=== PATIENT | female | born 1930 | race Caucasian/White ===

== ENCOUNTER 2017-08-22 08:57 | Outpatient (CLI) | payer MEDICARE, OTHER ==
--- OUTSIDE RECORDS SUMMARY | 2017-08-22 09:03 | XMS | Clinical Summary ---
:1930 Author Organization [facility] Address [address] [place] [address] Phone Care Team Providers Name Role Phone , Primary Care Provider Unavailable Allergies Not on File Current Medications Not on file Active Problems Not on file Social History Tobacco Use Types Packs/Day Years Used Date Never Assessed Sex Assigned at Date Recorded Not on file Last Filed Vital Signs Not on file Plan of Treatment Not on file Results Not on filefrom Last 3 Months
--- NOTE | 2017-08-22 10:20 | RAD ---
TWO VIEWS CHEST: Comparison: None. History: Dyspnea. FINDINGS: Two views of the chest shows normal sized cardiomediastinal silhouette. Increased interstitial chaka ngs are present. There is no evidence of consolidation, mass, or pleural effusion. Degenerative fernandez ges are seen in the spine. IMPRESSION: No evidence of acute cardiopulmonary disease. POS: [facility]
== END 2017-08-22 08:58 | disposition home or self-care (01) ==
LOC: RAD 08:57
PROVIDERS: ATTEND Internal Medicine Critical Care Medicine
DX: R06.00 Dyspnea, unspecified (principal)
CPT/HCPCS: 71020

== ENCOUNTER 2017-12-25 15:54 | Outpatient (CLI) | payer MEDICARE, OTHER | END 2017-12-25 15:55 | disposition home or self-care (01) | LOC: BICMAMMO 15:54 | PROVIDERS: ATTEND Internal Medicine Geriatric Medicine | DX: Z12.31 Encounter for screening mammogram for malignant neoplasm of breast (principal) | CPT/HCPCS: 77063; 77067 ==

== ENCOUNTER 2018-02-15 22:19 | Emergency (ER) | payer MEDICARE, OTHER ==
[2018-02-16 03:03] LABS: #Basophils 0.1 thou/uL (0.0-0.2); #Eosinphils 0.1 thou/uL (0.0-0.7); #Lymphocytes 1.2 thou/uL (1.20-3.40); #Monocytes 0.7 thou/uL (0.11-0.59); #Neutrophils 3.2 thou/uL (1.40-6.50); %Basophils 1.2 % (0.0-1.0); %Eosinophils 2.6 % (0.0-10.0); %Lymphocytes 22.9 % (21.0-51.0); %Monocytes 12.9 % (0.0-10.0); %Neutrophils 60.5 % (42.0-75.0); Hemoglobin 13.7 g/dL (12.0-16.0); Mean Corpuscular Hemoglobin 33.9 pg (27.0-31.0); Mean Corpuscular Volume 99.5 fl (81.0-99.0); Mean Platelet Volume 7.6 fL (7.4-10.4); Platelet Count 165 thou/uL (130-400); RBC Distribution Width 11.9 % (11.5-14.5); Red Blood Cell (RBC) Count 4.04 mill/uL (4.20-5.40); White Blood Cell (WBC) Count 5.3 thou/uL (4.8-10.8)
[2018-02-16] MEDS ORDERED: Proparacaine 0.5% Opth 15 ML BOT ONE (03:07)
[2018-02-16 03:18] LABS: ALT (SGPT) 19 U/L (8-55); AST (SGOT) 24 U/L (5-34); Albumin 4.1 g/dL (3.4-4.8); Alkaline Phosphatase 53 U/L (40-150); Anion Gap 8 mmol/L (10-20); BUN (Urea Nitrogen) 33 mg/dL (9.8-20.1); Bilirubin, Total 0.4 mg/dL (0.2-1.2); CRP (Inflammatory) Less than 0.50 mg/dL (= or < 0.5); Calc. Creatinine Clearance 0 mL/min (70-130); Calcium 9.6 mg/dL (7.8-10.44); Carbon Dioxide 29 mmol/L (23-31); Chloride 104 mmol/L (98-107); Estimated GFR-MDRD 50; Globulin 2.5 g/dL (2.4-3.5); Glucose 95 mg/dL (83-110); Protein, Total 6.6 g/dL (6.0-8.3); Sodium 137 mmol/L (136-145)
--- NOTE | 2018-02-16 08:12 | CT ---
PRELIMINARY REPORT/[facility]/EMERGENCY AFTER HOURS PROCEDURE: EXAM: CT Head Without Intravenous Contrast CLINICAL HISTORY: 87 years old, female; Pain; Headache; Patient HX: Headache for two hours. TECHNIQUE: Axial computed tomography images of the head/brain without intravenous contrast. COMPARISON: No relevant prior studies available. FINDINGS: Brain: Mild periventricular and deep white matter hypodensities compatible with chronic microvascular ischemic change. No hemorrhage. Ventricles: Mild nonspecific asymmetry. Bones/joints: Unremarkable. No acute fracture. Soft tissues: Normal. Sinuses: Unremarkable. Mastoid air cells: Unremarkable. No mastoid effusion. IMPRESSION: No acute findings. Thank you for allowing us to participate in the care of your patient. Dictated and Authenticated by: Khai Moody MD 02/16/2018 3:34 AM Central Time ([place] & [place]) FINAL REPORT EMERGENCY AFTER HOURS CT BRAIN: Date: 02/16/18 PROVIDED CLINICAL HISTORY: Headache. IMPRESSION: I agree with the preliminary interpretation given by Marvin. No evidence for intracranial hemorrhage or mass effect. Chronic microvascular ischemic changes are noted. Asymmetry of the frontal horns of the lateral ventricles is again noted, stable with respect to 11/11/16. POS: [facility]
== END 2018-02-16 04:17 | disposition home or self-care (01) ==
LOC: ERS 22:19
DX: R51 Headache (principal); E03.9 Hypothyroidism, unspecified; I10 Essential (primary) hypertension; I25.2 Old myocardial infarction; E78.5 Hyperlipidemia, unspecified; Z79.899 Other long term (current) drug therapy
CPT/HCPCS: 36415; 70450; 80053; 85025; 85652; 86140

== ENCOUNTER 2018-08-15 08:58 | Outpatient (CLI) | payer MEDICARE, OTHER ==
--- NOTE | 2018-08-15 11:00 | RAD ---
PA AND LATERAL CHEST: HISTORY: Dyspnea. COMPARISON: 08/22/17 exam. FINDINGS: The heart size is within normal limits. There are atherosclerotic changes of the aorta. Lungs appea r mildly hyperexpanded. No focal infiltrative process. IMPRESSION: Stable exam. POS: [facility]
== END 2018-08-15 08:59 | disposition home or self-care (01) ==
LOC: RAD 08:58
PROVIDERS: ATTEND Internal Medicine Critical Care Medicine
DX: R06.00 Dyspnea, unspecified (principal)
CPT/HCPCS: 71046

== ENCOUNTER 2018-08-27 12:27 | Outpatient (CLI) | payer MEDICARE, OTHER ==
--- NOTE | 2018-08-27 15:08 | CT ---
CHEST CT WITHOUT CONTRAST 08/27/18 HISTORY: Dyspnea. Productive cough. Emphysema. COMPARISON: None. FINDINGS: Limited evaluation of the mediastinal structures by lack of IV contrast. No mass, lymphadenopathy, or hematoma. No significant pericardial fluid. Atherosclerosis. Nonaneurysmal aorta. The visualized upper solid organs are unremarkable. There is a 2.4 x 1 cm cyst associated with the ri ght hepatic lobe, likely slightly complex with attenuation coefficient of 13 Hounsfield units. Trache a and central bronchi are patent. No consolidation or mass. Atelectatic changes in the lung bases are noted. No pneumothorax or osseous abnormalities. In the left paraspinal region, at the T10-T11 disk space level, is a well-circumscribed hypodense lesion measuring 0.9 x 1.0 cm. The possibility of a peroneal sleeve cyst versus a nerve sheath tumor is raised. Nonemergent thoracic spine MRI can be pe rformed. IMPRESSION: 1. Hyperinflation with chronic changes. No suspicious masses. 2. Left paraspinal lesion as described above. Nonemergency thoracic spine MRI is recommended. POS: [facility]
--- NOTE | 2018-08-27 16:02 | NM ---
NUCLEAR MEDICINE VENTILATION PERFUSION SCAN: (V/Q SCAN) 08/27/18 HISTORY: 88-year-old female with other forms of dyspnea. TECHNIQUE: Xenon-133 gas dose: 21.6 millicuries. [id number] dose: 6.5 millicuries. The patient inhaled Xenon-133 gas, and dynamic ventilation scintigraphy was performed. [id number] was injected IV, and multiple perfusion scintigraphic views were obtained. FINDINGS: There are no moderate-sized or large perfusion defects. There are no significant ventilation/perfusi on mismatches. IMPRESSION: Low probability for pulmonary thromboembolism. jn [] POS: [facility]
== END 2018-08-27 12:28 | disposition home or self-care (01) ==
LOC: NM 12:27
PROVIDERS: ATTEND Internal Medicine Critical Care Medicine
DX: R06.09 Other forms of dyspnea (principal); R91.8 Other nonspecific abnormal finding of lung field; G95.9 Disease of spinal cord, unspecified
CPT/HCPCS: 71250; 78582; 94729; A9540; A9558

== ENCOUNTER 2018-10-24 12:05 | Outpatient (CLI) | payer MEDICARE, OTHER ==
[2018-10-24] MEDS ORDERED: Gadobenate Dimeglumine 529 MG/1 ML (20ML VIAL) ONE (13:22)
--- NOTE | 2018-10-25 10:41 | MRI ---
THORACIC SPINE MRI WITH AND WITHOUT CONTRAST: DATE: 10/24/2018. COMPARISON: None. HISTORY: Neck pain, left paraspinal lesion seen on recent CT examination. TECHNIQUE: Multiplanar, multisequence MR imaging of the thoracic spine is provided with and without contrast. FINDINGS: Sagittal STIR imaging demonstrates no focal area of osseous marrow edema. There is rounded T2 hyperintensity in the region of the neural foramina bilaterally at numerous level s within the thoracic spine. This includes on the right at T3-4, T5-6 T6-7, T7-8, T8-9, T9-10, T10-1 1, T11-12, and T12-L1. In addition, rounded areas of increased T2 signal intensity within the neural foramina noted on the left at T3-4, T6-7, T7-8, T8-9, T9-10, and T10-11, most prominent at the T10-1 1 level. These findings suggest numerous perineural sleeve cysts of doubtful clinical significance. The largest such lesion is noted at the T10-11 level on the left and corresponds to the finding on r ecent chest CT. Thoracic vertebral body height and alignment is within normal limits. Benign hemangioma noted at th eT8 level. No focal area of abnormal signal intensity is identified within the thoracic cord. Motion artifact limits detailed assessment for central canal stenosis. There is no evidence of signi ficant central canal stenosis at any level within the thoracic spine. No significant neural foramina l stenosis is noted at any level within the thoracic spine on either side. Of note, the areas of T2 hyperintensity within the neural foramina at multiple levels bilaterally wit hin the thoracic spine demonstrate no abnormal enhancement. There is no abnormal enhancement involvi ng the osseous structures, the intervertebral disks, or the contents of the thecal sac. 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 No suspicious mass lesion identified. Of note, the lesion seen on recent examination of the chest in the left paraspinal region is stable when maritza red to a CT of the abdomen performed 12/11/2014. POS: [facility]
--- NOTE | 2018-10-25 11:02 | MRI ---
MRI OF CERVICAL SPINE WITH AND WITHOUT CONTRAST: DATE: 10/24/2018. COMPARISON: None. HISTORY: Neck pain. TECHNIQUE: Multiplanar, multisequence MR imaging of the cervical spine is provided with and without contrast. FINDINGS: Motion artifact limits detailed assessment of the cervical spine on the STIR imaging, particularly mi d cervical spine. There is no discrete focal area of abnormal signal intensity on the STIR imaging t o suggest focal osseous marrow edema. No significant anterolisthesis or retrolisthesis is noted within the cervical spine. There is modera te degenerative change at the atlantoaxial interspace. The craniocervical junction demonstrates mode rate degenerative change. C2-3: There is mild bilateral facet hypertrophy with no significant central canal or neural foramina l stenosis. C3-4: There is disk space narrowing, disk desiccation, and minimal disk bulge. There is partial eff acement of the ventral thecal sac. No significant central canal stenosis. Bilateral facet and uncov ertebral osteophyte formation noted, left greater than right. There is mild bilateral neural foraminal stenosis, left greater than right. C4-5: There is disk space narrowing and disk desiccation. Mild bilateral facet hypertrophy. No sig nificant central canal or neural foraminal stenosis. C5-6: There is disk space narrowing and disk desiccation with mild bilateral facet hypertrophy, left greater than right. Mild bilateral neural foraminal stenosis. Mild central canal stenosis. C6-7: There is disk space narrowing, disk desiccation, and disk bulge with partial effacement of guanakito tral thecal sac and mild central canal stenosis. Facet and uncovertebral osteophyte formation noted with no significant neural foraminal stenosis on either side. C7-T1: There is disk space narrowing and disk desiccation. There is bilateral facet hypertrophy wit h no significant central canal or neural foraminal stenosis. There is no focal area of abnormal signal intensity identified within the cervical cord. The postcontrast imaging demonstrates no abnormal enhancement involving the contents of the thecal sa c. The osseous structures and intervertebral disks demonstrate no abnormal enhancement. IMPRESSION: Multilevel facet hypertrophy within the mid cervical spine with scattered areas of central canal and neural foraminal stenosis as detailed above. POS: [facility]
== END 2018-10-24 12:06 | disposition home or self-care (01) ==
LOC: BICMRI 12:05
PROVIDERS: ATTEND Physician Assistant Surgical
DX: M54.2 Cervicalgia (principal); M54.6 Pain in thoracic spine; M48.02 Spinal stenosis, cervical region; G96.19 Other disorders of meninges, not elsewhere classified
CPT/HCPCS: 72156; 72157; 82565; A9579

== ENCOUNTER 2018-10-25 09:27 | Outpatient (CLI) | payer MEDICARE, OTHER ==
--- NOTE | 2018-10-25 11:06 | RAD ---
CERVICAL SPINE SERIES 4 VIEWS: Date: 10/25/18 HISTORY: Neck pain. FINDINGS: The vertebral bodies are normal in height. There are marked arthritic changes of the spine. There is degenerative disc narrowing at C4-5, C5-6, C6-7, and C7-T1. There is a retrolisthesis of C4 on C5 of 2-3 mm, which becomes slightly accentuated in extension and minimally reduced in flexion. Anterolisth esis of C7 on T1 is stable. Marked degenerative facet changes are present. IMPRESSION: 1. Marked arthritic changes of the spine as discussed above. 2. Incidental note is made of some moderate carotid bulb calcifications bilaterally. POS: [facility]
== END 2018-10-25 09:28 | disposition home or self-care (01) ==
LOC: BICRAD 09:27
PROVIDERS: ATTEND Physician Assistant Surgical
DX: M54.2 Cervicalgia (principal); M47.812 Spondylosis without myelopathy or radiculopathy, cervical region
CPT/HCPCS: 72050

== ENCOUNTER 2019-01-07 02:08 | Emergency (ER) | payer MEDICARE, OTHER | END 2019-01-07 04:00 | disposition home or self-care (01) | LOC: ERS 02:08 | DX: K59.00 Constipation, unspecified (principal); E03.9 Hypothyroidism, unspecified; I25.2 Old myocardial infarction; I10 Essential (primary) hypertension; E78.5 Hyperlipidemia, unspecified; Z79.899 Other long term (current) drug therapy | CPT/HCPCS: 99283 ==

== ENCOUNTER 2019-01-10 11:42 | Outpatient (CLI) | payer MEDICARE, OTHER | END 2019-01-10 11:43 | disposition home or self-care (01) | LOC: BICMAMMO 11:42 | PROVIDERS: ATTEND Internal Medicine Geriatric Medicine | DX: Z12.31 Encounter for screening mammogram for malignant neoplasm of breast (principal); Z80.3 Family history of malignant neoplasm of breast | CPT/HCPCS: 77063; 77067 ==

== ENCOUNTER 2019-03-27 08:21 | Outpatient (CLI) | payer MEDICARE, OTHER ==
[2019-03-27] MEDS ORDERED: ISOVUE-370 76%-LOCM 1 ML ONE (08:52)
--- NOTE | 2019-03-27 11:13 | CT ---
CHEST CT WITH CONTRAST ABDOMEN CT WITH CONTRAST PELVIS CT WITH CONTRAST: HISTORY: Midepigastric pain. Weight loss. Loss of appetite. Constipation. COMPARISON: 12/01/2014. FINDINGS: Trachea and central bronchi are patent. No masses or consolidation. Minimal atelectatic change in t he lung bases. No pleural effusion or pneumothorax. No mediastinal mass, lymphadenopathy, or hematoma. Heart size is within normal limits. No significa nt pericardial fluid. The thoracic and abdominal aorta have an overall normal caliber. No aneurysm or periaortic fat stranding. The central pulmonary arteries are patent. ABDOMEN CT: Hypodensity in the right hepatic lobe with an attenuation coefficient of 9.6 Hounsfield units, compat ible with a cyst measuring 2.0 x 1.4 cm. There are no enhancing masses in the liver. The spleen, pa ncreas, and adrenal glands have appropriate enhancement. Portal vein is patent. Unremarkable gallbladder. Symmetric enhancement of the kidneys. Bilaterally, no obstructive uropathy. No gastrohepatic, retrocrural, or periportal lymphadenopathy. Limited evaluation for inflammatory changes due to decreased intraabdominal fat. No mesenteric mass, lymphadenopathy, free air, or free fluid. Gastric mucosa is limited in evaluation due to inadequate distention. Small bowel loops have a ze l caliber. Ileocecal junction is normal. There is contrast and fecal material in a nondistended, no ndilated colon. Extensive diverticulosis in the sigmoid colon. No diverticulitis. Appendix is diff icult to appreciate. Nevertheless, no inflammation of the cecal apex. CT PELVIS: Surgically absent uterus. The urinary bladder is unremarkable. No pelvic mass, lymphadenopathy, karlie e air, or free fluid. No lytic or blastic lesions within the osseous structures. There is a left paraspinal mass in the mi dthoracic region, unchanged since November 2014. Stable hypodensities in the left and right hemipelvi s, unchanged from the examination performed on November 2014. IMPRESSION: 1. Diverticulosis, without evidence of diverticulitis. 2. No obvious masses in the chest, abdomen, or pelvis. 3. Limited evaluation of the gastric mucosa. POS: [facility]
== END 2019-03-27 08:22 | disposition home or self-care (01) ==
LOC: BICCT 08:21
PROVIDERS: ATTEND Internal Medicine Gastroenterology
DX: K59.00 Constipation, unspecified (principal); R63.0 Anorexia; R63.4 Abnormal weight loss; R10.13 Epigastric pain; K57.30 Diverticulosis of large intestine without perforation or abscess without bleeding
CPT/HCPCS: 71260; 74177; 82565; Q9966

== ENCOUNTER 2019-05-15 09:34 | Emergency (ER) | payer MEDICARE, OTHER ==
[2019-05-15] MEDS ORDERED: Bacitracin Zinc 1 Packet ONE (11:14)
== END 2019-05-15 11:16 | disposition home or self-care (01) ==
LOC: ERS 09:34
DX: S81.811A Laceration without foreign body, right lower leg, initial encounter (principal); I25.2 Old myocardial infarction; I10 Essential (primary) hypertension; E03.9 Hypothyroidism, unspecified; E78.5 Hyperlipidemia, unspecified; Z79.899 Other long term (current) drug therapy; W26.8XXA Contact with other sharp object(s), not elsewhere classified, initial encounter
CPT/HCPCS: 99282

== ENCOUNTER 2019-05-26 11:10 | Emergency (ER) | payer MEDICARE, OTHER ==
[2019-05-26] MEDS ORDERED: ISOVUE-370 76%-LOCM 1 ML ONE (11:54)
[2019-05-26 12:14] LABS: #Eosinphils 0.1 thou/uL (0.0-0.7); #Monocytes 0.7 thou/uL (0.11-0.59); #Neutrophils 4.8 thou/uL (1.40-6.50); %Basophils 0.7 % (0.0-1.0); %Eosinophils 1.2 % (0.0-10.0); %Lymphocytes 15.1 % (21.0-51.0); %Monocytes 10.8 % (0.0-10.0); %Neutrophils 72.2 % (42.0-75.0); Hemoglobin 13.3 g/dL (12.0-16.0); Mean Corpuscular HGB CONC 33.3 g/dL (32.0-36.0); Mean Corpuscular Hemoglobin 33.9 pg (27.0-31.0); Mean Platelet Volume 7.3 fL (7.4-10.4); Platelet Count 165 thou/uL (130-400); RBC Distribution Width 12.5 % (11.5-14.5); Red Blood Cell (RBC) Count 3.91 mill/uL (4.20-5.40); White Blood Cell (WBC) Count 6.7 thou/uL (4.8-10.8)
--- NOTE | 2019-05-26 12:31 | RAD ---
EXAM: Chest one view: HISTORY: Chest pain COMPARISON: 11/11/2016, 08/15/2018 FINDINGS: Mild hyperinflation and chronic change. Heart size: Within normal limits. Lungs: Clear of acute process. No evidence for pneumonia, pleural effusion, acute edema, or pneumothorax, or other significant acute process. IMPRESSION: No significant acute intrathoracic disease. Atherosclerosis of the aorta. Stable from prior study.
[2019-05-26 12:58] LABS: Albumin 3.7 g/dL (3.4-4.8)
[2019-05-26 12:59] LABS: Chloride 107 mmol/L (98-107); Potassium 4.1 mmol/L (3.5-5.1); Sodium 138 mmol/L (136-145)
[2019-05-26 13:00] LABS: Calcium 8.8 mg/dL (7.8-10.44); Globulin 2.7 g/dL (2.4-3.5); Glucose 89 mg/dL (83-110); Protein, Total 6.4 g/dL (6.0-8.3)
[2019-05-26 13:02] LABS: Anion Gap 12 mmol/L (10-20); Bilirubin, Total 0.4 mg/dL (0.2-1.2); Carbon Dioxide 23 mmol/L (23-31)
[2019-05-26 13:03] LABS: Alkaline Phosphatase 52 U/L (40-150)
[2019-05-26 13:04] LABS: Calc. Creatinine Clearance 0 mL/min (70-130); Estimated GFR-MDRD 66
[2019-05-26 13:05] LABS: AST (SGOT) 26 U/L (5-34); BUN (Urea Nitrogen) 30 mg/dL (9.8-20.1)
[2019-05-26 13:06] LABS: ALT (SGPT) 26 U/L (8-55)
--- NOTE | 2019-05-26 14:50 | CT ---
CTA CHEST AND ABDOMEN AND PELVIS WITH 3D VOLUME RENDERING WITH CONTRAST: INDICATION: Pain, chest pain, new onset. FINDINGS: No evidence of acute thoracoabdominal aortic dissection. There is scattered vascular disease. No ev idence of significant aneurysmal dilatation of the aorta. Scattered areas of subpleural opacificatio n are present that may relate to interstitial fibrosis and/or areas of scarring. Subtle areas of padmini und-glass and tree-in-bud nodularity are seen that could relate to atypical infectious/inflammatory p rocess. Limited evaluation of the solid abdominal organs on the basis of arterial phase of enhanceme nt. There are hypodensities of the liver and right kidney, likely cysts, although incompletely aram cterized. Scattered osseous degenerative change is present. IMPRESSION: 1. No acute thoracoabdominal aortic dissection. 2. Additional details are described above. POS: [facility]
== END 2019-05-26 15:30 | disposition home or self-care (01) ==
LOC: ERS 11:10
DX: R07.9 Chest pain, unspecified (principal); E03.9 Hypothyroidism, unspecified; I25.2 Old myocardial infarction; I10 Essential (primary) hypertension; Z79.899 Other long term (current) drug therapy
CPT/HCPCS: 36415; 71045; 71275; 80053; 83690; 83880; 84484; 85025; 85379; 93005; Q9966

== ENCOUNTER 2019-07-17 10:54 | Emergency (ER) | payer MEDICARE, OTHER | END 2019-07-17 11:53 | disposition home or self-care (01) | LOC: ERS 10:54 | DX: S80.811A Abrasion, right lower leg, initial encounter (principal); E03.9 Hypothyroidism, unspecified; I25.2 Old myocardial infarction; I10 Essential (primary) hypertension; E78.5 Hyperlipidemia, unspecified; Z79.899 Other long term (current) drug therapy; W19.XXXA Unspecified fall, initial encounter | CPT/HCPCS: 99283 ==

== ENCOUNTER 2019-09-02 07:29 | Outpatient (CLI) | payer MEDICARE, OTHER ==
--- NOTE | 2019-09-02 10:40 | RAD ---
BARIUM SWALLOW ESOPHAGRAM: HISTORY: Dysphagia. COMPARISON: None. EXPOSURE: 2.02 minutes 40.81 mGy FINDINGS: Initial surgical technologist chest radiograph demonstrates atherosclerosis of the aortic knob. Normal cardiac silhou ette. Pulmonary vessels and hilum are normal. Costophrenic angles are clear. Hyperinflation without c onsolidation or mass. No pneumothorax or acute osseous abnormality. The cervical and thoracic esophagus have a normal course and caliber. No mucosal abnormality. There i s mild rightward deviation of the proximal thoracic esophagus secondary to the aortic knob. No eviden ce of reflux during intermittent fluoroscopy. The patient was administered a standard 13 mm barium tablet, which passed without difficulty. IMPRESSION: Unremarkable cervical and thoracic esophagram. POS: [facility]
== END 2019-09-02 07:30 | disposition home or self-care (01) ==
LOC: RAD 07:29
PROVIDERS: ATTEND Specialist
DX: R13.10 Dysphagia, unspecified (principal)
CPT/HCPCS: 74220

== ENCOUNTER 2019-11-01 13:57 | Observation (INO) | payer MEDICARE, OTHER ==
[~2019-11-01 13:57] MED LIST: Iopamidol-370 76% 500 ML 1 ML ONE
--- NOTE | 2019-11-01 14:27 | RAD ---
EXAM: Single view of the chest HISTORY: Chest pain COMPARISON: 05/26/2019 FINDINGS: Single view of the chest shows a normal sized cardiomediastinal silhouette. There is no lukas dence of consolidation, mass, or pleural effusion. The bones are unremarkable. IMPRESSION: No evidence of acute cardiopulmonary disease
[2019-11-01 14:29] LABS: #Eosinphils 0.1 thou/uL (0.0-0.7); #Lymphocytes 1.2 thou/uL (1.20-3.40); #Monocytes 0.7 thou/uL (0.11-0.59); #Neutrophils 3.6 thou/uL (1.40-6.50); %Basophils 0.5 % (0.0-1.0); %Eosinophils 1.8 % (0.0-10.0); %Lymphocytes 21.9 % (21.0-51.0); %Monocytes 12.9 % (0.0-10.0); %Neutrophils 62.9 % (42.0-75.0); Hemoglobin 13.6 g/dL (12.0-16.0); Mean Corpuscular HGB CONC 34.1 g/dL (32.0-36.0); Mean Corpuscular Hemoglobin 33.5 pg (27.0-31.0); Mean Corpuscular Volume 98.1 fL (78.0-98.0); Mean Platelet Volume 7.2 fL (7.4-10.4); Platelet Count 178 thou/uL (130-400); Red Blood Cell (RBC) Count 4.06 mill/uL (4.20-5.40); White Blood Cell (WBC) Count 5.7 thou/uL (4.8-10.8)
[2019-11-01 14:51] LABS: ALT (SGPT) 19 U/L (8-55); AST (SGOT) 22 U/L (5-34); Albumin 4.2 g/dL (3.4-4.8); Alkaline Phosphatase 65 U/L (40-110); Anion Gap 14 mmol/L (10-20); BUN (Urea Nitrogen) 35 mg/dL (9.8-20.1); Bilirubin, Total 0.5 mg/dL (0.2-1.2); Calc. Creatinine Clearance 0 mL/min (70-130); Calcium 9.7 mg/dL (7.8-10.44); Carbon Dioxide 24 mmol/L (23-31); Chloride 109 mmol/L (98-107); Estimated GFR-MDRD 64; Globulin 2.8 g/dL (2.4-3.5); Glucose 104 mg/dL (83-110); Potassium 3.5 mmol/L (3.5-5.1); Sodium 143 mmol/L (136-145)
[2019-11-01] MEDS ORDERED: Aspirin Chewable 81 MG TAB ONE (14:57)
--- NOTE | 2019-11-01 15:55 | CT ---
CT Abdomen Pelvis W Con: 11/01/2019 3:23 PM CLINICAL INFORMATION: Chest pain and epigastric pain COMPARISON: None. TECHNIQUE: Multiple contiguous axial images were obtained and a CT of the abdomen and pelvis with IV contrast. C oronal and sagittal reformats were performed. FINDINGS: Lower Chest: within normal limits. Abdomen: Liver: 1.6 cm cyst in the right lobe. Bile Ducts: Normal caliber. Gallbladder: No calcified gallstones. Normal caliber wall. Pancreas: within normal limits. Spleen: within normal limits. Adrenals: within normal limits. Kidneys: Subcentimeter hypodensity in the right kidney likely represents a small cyst. Pelvis: Reproductive Organs: Status post hysterectomy. Ureters: within normal limits. Bladder: within normal limits. Peritoneum: No ascites or free air, no fluid collection. Bowel: Normal caliber. Scattered diverticula in the colon. Mesentery and Retroperitoneum: No enlarged mesenteric or retroperitoneal lymph nodes. Vessels: Atherosclerotic calcifications. Abdominal Wall: within normal limits. Bones: Degenerative changes in the spine. IMPRESSION: 1. No evidence of acute intraabdominal or pelvic abnormality. 2. Hepatic and right renal cysts 3. Diverticulosis
[2019-11-01 16:13] LABS: Bilirubin Negative (Negative); Blood, Urine Negative (Negative); Clarity Clear (Clear); Glucose, Urine (Dipstick) Normal (Negative); Leukocyte 75 Leu/uL (Negative); Nitrite Negative (Negative); Protein, Urine (Dipstick) 20 mg/dL (Neg-Trace); RBC/HPF 0-3 HPF (0-3); Squamous Epithelial 0-3 HPF (0-3)
[2019-11-01 16:19] LABS: Bacteria/HPF 1+ HPF (None Seen)
--- NOTE | 2019-11-01 18:49 | HP ---
TIME OF ADMISSION: 1700 hours. CHIEF COMPLAINT: Chest pain. HISTORY OF PRESENT ILLNESS: Ms. Sophia Holbrook is an 89-year-old woman with a history of coronary artery disease, who had an TX in 2016, brought in to the emergency department with complaints of chest pain/epigastric pain lasting 30 minutes to an hour prior to arriving to the emergency department. She was brought in by her family. The patient's family is no longer at bedside and the patient states her went home. On arrival to the room in the emergency department, the patient was banging on the opposite end of the glass sliding door. When I came in, she stated she was being trapped like a crazy person. The patient is alert and oriented to place, date, and year. She has no documented history of dementia and is able to answer questions appropriately and follow commands; however, does not recall events leading up to her coming in. She states she had a sweet roll at home and is unsure why she was brought in. She does not recall having any pain. The patient is often tangential and rambling. Review of systems completed, but unsure how reliable it is. She denies having any chest pain at present. Denies having any shortness of breath, cough or hemoptysis. Endorses having abdominal discomfort, but unable to characterize the pain or give any details regarding the pain. States she has been having normal bowel movements. Denies having any urinary symptoms. Denies fevers, chills or sweats. States she lives with her and manages well on her own, but is no longer able to drive. The patient states review of systems are negative. Per ED notes, she described pain localized to the left upper chest radiating to the epigastric region, associated with shortness of breath. She reportedly expressed that her pain felt like "rocks in her stomach." The patient was given 325 mg of aspirin. She had an EKG done, which showed normal sinus rhythm with a heart rate of 79. ST segments and T-waves appeared normal. She underwent a chest x-ray, which showed no evidence of acute cardiopulmonary process. She also underwent a CT of the abdomen and pelvis, which was done with contrast and demonstrated no evidence of acute intraabdominal or pelvic abnormality. She was noted to have hepatic and right renal cyst as well as diverticulosis. Laboratory studies were notable for a normal full blood count. She had a sodium of 143, potassium 3.5, BUN of 35, creatinine of 0.84, GFR of 64, which appears stable when compared to baseline. LFTs unremarkable. Lipase was normal at 75. Urinalysis was also done showing 75 leukocyte esterase, 11 to 20 white blood cells, and 1+ bacteria. PAST MEDICAL HISTORY: 1. Coronary artery disease. 2. TX in 2016. 3. Hypertension. 4. Hypothyroidism. 5. Hyperlipidemia. PAST SURGICAL HISTORY: 1. Appendectomy. 2. Hysterectomy. 3. Lumpectomy. SOCIAL HISTORY: The patient lives with her . Denies any tobacco use or alcohol consumption. PHYSICAL EXAMINATION: GENERAL: The patient appears thin, well developed, did initially appear to be in some distress and anxious, but once I began speaking to her, she calmed down and got back on the stretcher, was agreeable to examination and assessment. VITAL SIGNS: Temperature 97.3, pulse 68, blood pressure 137/75, respirations 18, and O2 sat 95% on room air. HEENT: Normocephalic and atraumatic. Pupils are equal, round, and reactive to light. Sclerae icterus. Oropharynx is clear. NECK: Supple. LUNGS: Clear to auscultation bilaterally without any wheezes, rales or rhonchi. CARDIAC: Regular rate and rhythm without audible murmurs, rubs or gallops. No chest wall tenderness on palpation. ABDOMEN: Soft, nontender, and nondistended. No guarding or rigidity. Negative Nova sign. No renal angle tenderness. EXTREMITIES: No lower leg swelling or edema. NEUROLOGIC: Alert and oriented x3. SKIN: Without rash or jaundice. INVESTIGATIONS: As mentioned above in HPI. IMPRESSION AND PLAN: Ms. Holbrook is a pleasant 89-year-old woman, presenting with left-sided chest pain as per ED reports and epigastric discomfort, being admitted for the following, 1. Acute coronary syndrome rule out. EKG unremarkable and initial troponin negative. We will continue to trend troponins. She does have a history of myocardial infarction 3 years ago. The patient is very anxious and reluctant to undergo any further investigations. Unclear if she has an underlying history of dementia, but is alert and oriented x3. We will likely plan to consult Cardiology. 2. Hypertension. Monitor blood pressure and resume home medications once verified. 3. Hyperlipidemia. Resume home medications. 4. Hypothyroidism. Resume home medications once verified. We will check TSH level. 5. Gastrointestinal prophylaxis with famotidine. 6. Deep venous thrombosis prophylaxis with mechanical SCDs. Walking program consulted. 7. Code status full. Surrogate decision maker is her , Mathew Holbrook. The patient's case discussed with attending who agrees upon care as described above. Job ID: [id number]
[2019-11-01 19:03] LABS: Troponin I 0.029 ng/mL (< 0.028)
[2019-11-01 20:11] VITALS: BMI 18.8
[2019-11-01 20:37] LABS: Troponin I 0.024 ng/mL (< 0.028)
[2019-11-01] MEDS: Famotidine/PF 20 mg/2ml Vial SLOW IVP SCH (21:45)
[2019-11-01] MEDS: Sodium Chloride 0.9% 1,000 ML IV SCH (21:47)
[2019-11-02 04:58] LABS: #Eosinphils 0.1 thou/uL (0.0-0.7); #Lymphocytes 1.1 thou/uL (1.20-3.40); #Monocytes 0.7 thou/uL (0.11-0.59); #Neutrophils 4.2 thou/uL (1.40-6.50); %Basophils 0.4 % (0.0-1.0); %Eosinophils 1.2 % (0.0-10.0); %Lymphocytes 18.6 % (21.0-51.0); %Monocytes 10.9 % (0.0-10.0); %Neutrophils 68.9 % (42.0-75.0); Mean Corpuscular HGB CONC 34.3 g/dL (32.0-36.0); Mean Corpuscular Hemoglobin 33.6 pg (27.0-31.0); Mean Platelet Volume 7.1 fL (7.4-10.4); Platelet Count 170 thou/uL (130-400); RBC Distribution Width 11.9 % (11.5-14.5); Red Blood Cell (RBC) Count 3.87 mill/uL (4.20-5.40); White Blood Cell (WBC) Count 6.1 thou/uL (4.8-10.8)
[2019-11-02 05:22] LABS: Anion Gap 9 mmol/L (10-20); BUN (Urea Nitrogen) 26 mg/dL (9.8-20.1); Calc. Creatinine Clearance 39 mL/min (70-130); Calcium 8.9 mg/dL (7.8-10.44); Carbon Dioxide 22 mmol/L (23-31); Cardiac Risk 2.9 (Less than 4.5); Chloride 111 mmol/L (98-107); Cholesterol 183 mg/dl (< 200 Desired); Estimated GFR-MDRD 72; Glucose 93 mg/dL (83-110); HDL Cholesterol 63 mg/dL (>60 Neg Risk); LDL Cholesterol, Calculated 111 mg/dL; Potassium 3.3 mmol/L (3.5-5.1); Sodium 139 mmol/L (136-145); Triglycerides 46 mg/dL (Less than 150)
[2019-11-02] MEDS ORDERED: Aspirin 81 mg Enteric Coated Tablet PO SCH (09:00)
[2019-11-02] MEDS: Famotidine/PF 20 mg/2ml Vial SLOW IVP SCH (09:02)
[2019-11-02] MEDS ORDERED: Nitroglycerin 0.4 MG TAB (25 Tab Bottle) PO PRN (09:50)
[2019-11-02] MEDS ORDERED: cefTRIAXone\\ROCEPHIN 1 GM in Sodium Chloride 0.9% 100 ML IVPB SCH (10:00)
[2019-11-02] MEDS ORDERED: Clopidogrel Bisulfate 75 MG TAB PO SCH (10:00)
[2019-11-02] MEDS: Sodium Chloride 0.9% 1,000 ML IV SCH (11:26)
--- NOTE | 2019-11-02 12:44 | PRG ---
DATE OF SERVICE: 11/02/2019 PRIMARY APPRAISAL TECHNICIAN: Bautista Talavera MD REASON FOR CONSULTATION: Chest discomfort. SUBJECTIVE: Ms. Holbrook is a delightful elderly woman. She underwent cardiac catheterization in 2016, found to have moderate coronary artery disease, best treated medically. She was brought to the hospital yesterday with a sensation of discomfort in her chest. The patient apparently yesterday described as "rocks in my chest," but today, she said it was "a pebble." She seems to have a lot of trouble remembering it. She is doing fine now. OBJECTIVE: VITAL SIGNS: Blood pressure 140/70, pulse 70. LUNGS: Clear. CARDIAC: Normal S1. Normal S2. ABDOMEN: Soft and nontender. LABORATORY DATA: Troponin levels were in the indeterminate range at 0.029. ASSESSMENT: 1. Coronary artery disease, thought to be moderate on previous catheterization. 2. Recent episode of chest discomfort. 3. Hypokalemia. PLAN: 1. Stress test to risk stratify. 2. Echocardiogram is pending. 3. Continue atorvastatin. Job ID: [id number]
[2019-11-02] MEDS ORDERED: Metoprolol Tartrate 5 MG/5 ML VIAL ONE (15:33)
[2019-11-02] MEDS ORDERED: Lorazepam 2 MG/ML VIAL ONE (15:36)
[2019-11-02] MEDS ORDERED: Lorazepam 2 MG/ML VIAL SLOW IVP SCH (15:45)
[2019-11-02] MEDS ORDERED: Metoprolol Tartrate 5 MG/5 ML VIAL IVP SCH (16:00)
[2019-11-02 16:54] VITALS: BP 155/74; TEMP 98
--- NOTE | 2019-11-02 19:40 | DIS ---
DATE OF ADMISSION: 11/01/2019 DATE OF DISCHARGE: 11/02/2019 DISCHARGE DISPOSITION: Home with family. FOLLOWUP: Follow up with primary care physician in 1 week. Follow up with primary corporate paralegal, Dr. Talavera, next week. Please note that patient declined a stress test. Patient was seen and examined on the day of discharge. Denies any new complaints. No chest pain, shortness of breath, or palpitations. BRIEF HOSPITAL COURSE: Patient is an 89-year-old female with coronary artery disease, presented to the emergency room with chest discomfort. Please refer to the history and physical for further details. The patient was admitted to the hospital with a diagnosis of chest discomfort rule out acute coronary syndrome. Her maximum troponin was 0.029. She was evaluated by Cardiology. Echocardiogram has been obtained. Report is pending at this time. Cardiology recommended a stress test, however, patient declined. Patient and the family understand the consequences of declining, not limited to life threatening complications including . She was also diagnosed with UTI. Urine culture report is pending at this time. Patient had some episodes of delirium during this hospital stay as well. The family requested the patient to be discharged. They will arrange for a stress test as outpatient with Dr. Talavera. FINAL DIAGNOSES: 1. Chest discomfort with indeterminate troponins. Please note that patient declined stress test. Echocardiogram is pending at this time. 2. Hypertension. 3. Hyperlipidemia. 4. Hypothyroidism. 5. Hypokalemia, replaced. Repeat basic metabolic profile after 1 week is recommended. Primary care physician advised to follow. 6. Urinary tract infection, present on admission. Patient received IV antibiotics, which has been changed to oral. DISCHARGE MEDICATIONS: Omnicef 300 mg twice daily for next 5 days. All other home medications were left unchanged. PLAN: Plan of care was discussed with the daughter over the phone. They stated understanding. Job ID: [id number]
[2019-11-02] MEDS ORDERED: Atorvastatin Calcium 40 MG TAB PO SCH (21:00)
[2019-11-03] MEDS ORDERED: Levothyroxine Sodium 50 MCG TAB PO SCH (06:00)
[2019-11-03] MEDS ORDERED: Clopidogrel Bisulfate 75 MG TAB PO SCH (09:00)
[2019-11-03] MEDS ORDERED: Famotidine/PF 20 mg/2ml Vial SLOW IVP SCH (09:00)
== END 2019-11-02 17:38 | disposition home or self-care (01) ==
LOC: ERS 13:57 → 2SW 19:21
PROVIDERS: ADMIT Hospitalist; ATTEND Hospitalist
DX: R07.89 Other chest pain (principal); I10 Essential (primary) hypertension; E78.5 Hyperlipidemia, unspecified; E03.9 Hypothyroidism, unspecified; E87.6 Hypokalemia; I25.10 Atherosclerotic heart disease of native coronary artery without angina pectoris; I25.2 Old myocardial infarction; K57.30 Diverticulosis of large intestine without perforation or abscess without bleeding; K76.89 Other specified diseases of liver; N39.0 Urinary tract infection, site not specified; Z79.02 Long term (current) use of antithrombotics/antiplatelets; Z79.899 Other long term (current) drug therapy
CPT/HCPCS: 71045; 74177; 78451; 80048; 80061; 83690; 83735; 84484 ×2; 85025; 85379; 87086; 93005; 93306; 94760; 96365; 96375; 96376; 97139; 99285; A9500; G0378 ×3; 36415; 80053; 81003; 81015; 84443; J0696; J2060; J3490; Q9967; S0028

== ENCOUNTER 2019-11-20 02:55 | Emergency (ER) | payer MEDICARE, OTHER ==
--- NOTE | 2019-11-20 08:16 | RAD ---
TWO VIEWS OF THE CHEST: COMPARISON: 11/01/2019. HISTORY: Productive cough since this morning and chest pain. FINDINGS: Two views of the chest show normal sized cardiomediastinal silhouette. There is no evidence of consol idation, mass, or pleural effusion. Degenerative changes are seen in the spine. IMPRESSION: No evidence of acute cardiopulmonary disease. POS: [facility]
== END 2019-11-20 04:30 | disposition home or self-care (01) ==
LOC: ERS 02:55
DX: R05 Cough (principal); I25.2 Old myocardial infarction; I10 Essential (primary) hypertension; E78.5 Hyperlipidemia, unspecified; E03.9 Hypothyroidism, unspecified
CPT/HCPCS: 71046

== ENCOUNTER 2019-11-28 17:36 | Emergency (ER) | payer MEDICARE, OTHER ==
--- NOTE | 2019-11-28 21:04 | CT ---
CT OF BRAIN PERFORMED WITHOUT CONTRAST ENHANCEMENT: 11/28/19 HISTORY: Fall, syncopal episode, patient hit her head. COMPARISON: A 02/16/18 study. Some generalized ventricular and sulcal prominence. Decreased attenuation of the periventricular whit e matter is consistent with chronic white matter change. No signs of intracerebral hemorrhage or extr a-axial fluid collections. The mastoid air cells and visualized sinuses are clear. IMPRESSION: No acute intracranial abnormalities. POS: [facility]
--- NOTE | 2019-11-28 21:06 | CT ---
CT OF CERVICAL SPINE PERFORMED WITHOUT CONTRAST ENHANCEMENT: 11/28/19 HISTORY: Fall with neck pain. The vertebral bodies are normal in height. There is marked degenerative disc narrowing at C4-5, C5-6 and C6-7. The facets are in normal alignment. At the C5-6 level, there is some moderate left foramina l narrowing. The canal is mildly stenotic at C6-7 and some mild right sided foraminal narrowing. The re is no CT evidence of fracture. Lungs apices are clear. IMPRESSION: No CT evidence of fracture of the cervical spine. POS: [facility]
== END 2019-11-28 22:00 | disposition home or self-care (01) ==
LOC: ERS 17:36
DX: Z04.3 Encounter for examination and observation following other accident (principal); E03.9 Hypothyroidism, unspecified; I25.2 Old myocardial infarction; I10 Essential (primary) hypertension; E78.5 Hyperlipidemia, unspecified; W18.30XA Fall on same level, unspecified, initial encounter
CPT/HCPCS: 70450; 72125

== ENCOUNTER 2019-12-07 23:35 | Emergency (ER) | payer MEDICARE, OTHER ==
--- NOTE | 2019-12-08 08:23 | RAD ---
CHEST 1 VIEW: Date: 12/07/2019 HISTORY: Shortness of breath, getting worse. COMPARISON: 11/01/2019. FINDINGS: Monitor leads overlie the chest. Heart size is within normal limits. Mild biapical pleural thickening . No confluent pneumonia, overt edema, or pleural effusion. IMPRESSION: No significant acute intrathoracic disease. Stable from prior study. Atherosclerosis of aorta. POS: [facility]
== END 2019-12-08 01:38 | disposition home or self-care (01) ==
LOC: ERS 23:35
DX: R09.81 Nasal congestion (principal); E03.9 Hypothyroidism, unspecified; I25.2 Old myocardial infarction; I10 Essential (primary) hypertension; E78.5 Hyperlipidemia, unspecified
CPT/HCPCS: 71045

== ENCOUNTER 2019-12-16 09:41 | Observation (INO) | payer MEDICARE, OTHER ==
[2019-12-16 10:10] LABS: #Eosinphils 0.1 thou/uL (0.0-0.7); #Lymphocytes 1.4 thou/uL (1.20-3.40); #Monocytes 0.6 thou/uL (0.11-0.59); #Neutrophils 5.6 thou/uL (1.40-6.50); %Basophils 0.4 % (0.0-1.0); %Eosinophils 1.5 % (0.0-10.0); %Lymphocytes 17.8 % (21.0-51.0); %Monocytes 8.1 % (0.0-10.0); %Neutrophils 72.2 % (42.0-75.0); Hemoglobin 13.7 g/dL (12.0-16.0); Mean Corpuscular HGB CONC 34.3 g/dL (32.0-36.0); Mean Corpuscular Hemoglobin 34.2 pg (27.0-31.0); Mean Corpuscular Volume 99.7 fL (78.0-98.0); Mean Platelet Volume 7.1 fL (7.4-10.4); Platelet Count 236 thou/uL (130-400); RBC Distribution Width 12.1 % (11.5-14.5); White Blood Cell (WBC) Count 7.7 thou/uL (4.8-10.8)
[2019-12-16] MEDS ORDERED: Aspirin Chewable 81 MG TAB ONE (10:17)
[2019-12-16 10:30] LABS: Bilirubin Negative (Negative); Blood, Urine Negative (Negative); Clarity Clear (Clear); Glucose, Urine (Dipstick) Normal (Negative); Leukocyte Negative Leu/uL (Negative); Nitrite Negative (Negative); Protein, Urine (Dipstick) Negative (Neg-Trace); Urobilinogen Normal mg/dL (Less than 2)
--- NOTE | 2019-12-16 10:48 | RAD ---
Chest AP view INDICATION: Chest pain COMPARISON: December 08, 2019 FINDINGS: Lungs:Stable emphysema. No focal consolidation. Cardiac silhouette:Stable cardiomegaly. Stable vascular calcifications of the aortic arch. Pulmonary vasculature:Normal Pleural spaces:No pleural effusion or pneumothorax is demonstrated. Upper abdomen:No abnormality seen. Osseous structures: No acute osseous abnormality. Additional findings:None. IMPRESSION: No acute cardiopulmonary abnormality.
[2019-12-16 11:20] LABS: ALT (SGPT) 17 U/L (8-55); AST (SGOT) 19 U/L (5-34); Albumin 3.5 g/dL (3.4-4.8); Alkaline Phosphatase 64 U/L (40-110); Anion Gap 10 mmol/L (10-20); BUN (Urea Nitrogen) 24 mg/dL (9.8-20.1); Bilirubin, Total 0.4 mg/dL (0.2-1.2); CK (CPK) 73 U/L (29-168); Calc. Creatinine Clearance 0 mL/min (70-130); Calcium 9.2 mg/dL (7.8-10.44); Carbon Dioxide 26 mmol/L (23-31); Chloride 107 mmol/L (98-107); Estimated GFR-MDRD 72; Globulin 2.8 g/dL (2.4-3.5); Glucose 87 mg/dL (83-110); Lipase 58 U/L (8-78); Potassium 3.9 mmol/L (3.5-5.1); Protein, Total 6.3 g/dL (6.0-8.3); Sodium 139 mmol/L (136-145)
[2019-12-16] MEDS ORDERED: Labetalol HCl 100 MG/20 ML VIAL ONE (11:36)
--- NOTE | 2019-12-16 12:54 | PDOC.FPRHP ---
- History of Present Illness Chief Complaint: R-sided chest pain for ~ 1 month History of Present Illness: 89yo F with a PMH of CAD (last cath in 2016), hypothyroidism, HTN who presents for evaluation for R-sided chest pain that has been intermittent over the last month. Pt states pain is very transient lasting only seconds, described as a pressure, located below right ribs. Not exacerbated by eating or exertion. No recent illnesses, n/v, dysuria, fever/chills. Sees Dr. Talavera after recent ED visit for CP. Had stress on 12/02 that was WNL. states she has had decreased memory over "some time," but they have not seen a PCP after firing their last one after being told to quit drinking. In the ED, she is current pain free. ED Course: ASA & labetalol - Allergies/Adverse Reactions Allergies Allergy/AdvReac Type Severity Reaction Status Date / Time No Known Allergies Allergy Verified 12/16/19 14:03 - Home Medications Medication Instructions Recorded Confirmed Type Nitroglycerin [Nitrostat] 0.4 mg PO Q5MIN PRN #25 tab 11/02/19 12/16/19 Rx Megestrol Acetate 400 mg PO BID 12/16/19 12/16/19 History Aspirin [Ecotrin Low Strength] 81 mg PO DAILY #30 tab 12/17/19 Rx Diclofenac Sodium [Voltaren Gel] 2 gm TP QIDPRN PRN #1 tube 12/17/19 Rx Levothyroxine Sodium [Synthroid] 50 mcg PO 0600 #30 tab 12/17/19 Rx Metoprolol Succinate [Toprol XL] 25 mg PO DAILY #30 tab 12/17/19 Rx - History PMHx: CAD, hypothyroid, HTN, HLD PSHx: hysterectomy, breast biopsy FHx: Daughter- breast CA Social: No tobacco use. Occasional EtOH use. No drug use. Lives at home with in [place], [place]. Has 2 daughters who live out of town. PCP: None. Used to see Dr. Stern but she is no longer here. CODE STATUS: DNR - Review of Systems ROS unobtainable: due to mental status (Pt does appear to have underlying dementia, but is able to answer ROS questions.) General: denies: fever/chills Eyes: denies: vision changes ENT: denies: nasal congestion, rhinorrhea Respiratory: denies: cough, congestion, shortness of breath, exercise intolerance Cardiovascular: reports: chest pain. denies: palpitation, edema Gastrointestinal: denies: nausea, vomiting, diarrhea, constipation Genitourinary: denies: dysuria Skin: denies: rashes, itching Neurological: denies: numbness - Vital signs BP: 147/95 HR: 76 RR: 16 Tmax: 99 Pox: 98% on RA Wt: 47kg - Physical Exam Constitutional: NAD, awake, alert and oriented, other (thin, appears to have dementia, able to answer questions but does get confused at times and has difficulty answering complex questions.) HEENT: conjunctiva clear, grossly normal vision, grossly normal hearing, MMM Neck: supple Chest: no-tender to palpation Heart: RRR, normal S1/S2, pulses present, no edema, other (2/6 MITESH) Lungs: CTAB, no respiratory distress, good air movement, no rales/rhonchi, no wheezing Abdomen: soft, non-tender, bowel sounds present Neurological: no focal deficit -Neurological: oriented to person but not place or date Skin: no rash/lesions Psychiatric: normal mood and affect, other (A/O x2, confused at times, difficulty answering complex questions.) FMR H&P: Results - Labs Result Diagrams: 12/16/19 09:51 12/16/19 10:56 Lab results: WBC 7.7 thou/uL (4.8-10.8) 12/16/19 09:51 Hgb 13.7 g/dL (12.0-16.0) 12/16/19 09:51 Hct 39.9 % (36.0-47.0) 12/16/19 09:51 MCV 99.7 fL (78.0-98.0) H 12/16/19 09:51 Plt Count 236 thou/uL (130-400) 12/16/19 09:51 Neutrophils % 72.2 % (42.0-75.0) 12/16/19 09:51 Sodium 139 mmol/L (136-145) 12/16/19 10:56 Potassium 3.9 mmol/L (3.5-5.1) 12/16/19 10:56 Chloride 107 mmol/L (98-107) 12/16/19 10:56 Carbon Dioxide 26 mmol/L (23-31) 12/16/19 10:56 BUN 24 mg/dL (9.8-20.1) H 12/16/19 10:56 Creatinine 0.76 mg/dL (0.6-1.1) 12/16/19 10:56 Glucose 87 mg/dL (83-110) 12/16/19 10:56 Calcium 9.2 mg/dL (7.8-10.44) 12/16/19 10:56 Total Bilirubin 0.4 mg/dL (0.2-1.2) 12/16/19 10:56 AST 19 U/L (5-34) 12/16/19 10:56 ALT 17 U/L (8-55) 12/16/19 10:56 Alkaline Phosphatase 64 U/L (40-110) 12/16/19 10:56 Creatine Kinase 73 U/L (29-168) 12/16/19 10:56 Serum Total Protein 6.3 g/dL (6.0-8.3) 12/16/19 10:56 Albumin 3.5 g/dL (3.4-4.8) 12/16/19 10:56 Lipase 58 U/L (8-78) 12/16/19 10:56 Urine Ketones Negative mg/dL (Negative) 12/16/19 10:09 Urine Blood Negative (Negative) 12/16/19 10:09 Urine Nitrite Negative (Negative) 12/16/19 10:09 Ur Leukocyte Esterase Negative Joe/uL (Negative) 12/16/19 10:09 - EKG Interpretation EK lead EKG shows normal sinus rhythm, Rate (beats per minute): 79, Conduction with, left anterior fascicular block, ST segments normal, T waves normal, [place] normal. - Radiology Interpretation Chest x-ray Status: report reviewed by me (No acute CPP) FMR H&P: A/P - Problem List (1) Chest pain Current Visit: Yes Status: Acute Code(s): R07.9 - CHEST PAIN, UNSPECIFIED (2) HTN (hypertension) Current Visit: No Status: Chronic Code(s): I10 - ESSENTIAL (PRIMARY) HYPERTENSION (3) Hypothyroidism Current Visit: No Status: Chronic Code(s): E03.9 - HYPOTHYROIDISM, UNSPECIFIED - Plan 89yo F with h/o CAD, HLD, HTN, Hypothyroidism presents with chest pain. #Chest pain, likely MSK in nature - Ongoing for past month, intermittent, lasting secs R-sided, non exertional - See in ED recently for similar sxs. - Known to Dr. Talavera, Obtained recent records and reviewed. Stress 12/02 that was negative for ischemia or scar, EF 74% - Trop negative in ED, EKG no acute changes - Will admit to tele obs for futher monitoring - Cardiac monitoring, trend trops - Heart score 3 - Low suspicion for ACS, likely MSK in nature #HLD - records reviewed and elevated on past - Cont home Atorva 40 #CAD - See above, will cont home plavix, and nitro prn #Hypothyroidism - Will cont home thyroxine, check TSH #HTN - Appears uncontrolled and elevated in ED - Will cont home toprol and monitor to adjust as needed. #Suspected Dementia and deconditing - Speech for cognitive eval - CM for possible placement and assistance - PT/OT Code: DNR IVF: SL DVT: Lovenox Diet: PCP: No current PCP Dispo: Admit to tele obs for cp r/o. Likely MSK in nature, recent cardiac workup. Pending tele monitoring and trops. Anticipate hospitalization < 48 hours. FMR H&P: Upper Level - Pertinent history 89YOF with a PMH significant for known CAD per last cath in 2016, HFrEF (EF 35- 40% per 2016 ECHO), HTN, and hypothyroidism who presented to the ED for evaluation for intermittent right-sided chest pain that has been ongoing for the last month. Of note, the patient has suspected dementia and was oriented to person and knew she was in [facility] but could not recall the city or the date. The was therefore present and able to provide additional history PRN. Patient reports that the pain comes on spontaneously and is not associated with anything in particular such as exertion, eating, or taking deep breaths. States it is cramping in nature and resolves after a few seconds on its own. Denies any associated SOB, N/V or recent illness. Denies any current chest pain. Per the patients , patient was recently admitted for a similar complaint but refused inpatient stress testing. He reports that she did however undergo outpatient stress testing within the last 2 weeks at the office of Dr. Talavera and that it was normal. - Pertinent findings Labs: troponin 0.019--> 0.021 UA negative Imaging: CXR: NAF EKG: NSR REVIEW OF SYSTEMS: Gen: no fever, chills, or sweats Neuro: no numbness/tingling, no weakness, denies headache Eyes: no visual changes ENT: no hearing changes, no sore throat, no runny nose Resp: no cough, no SOB, no wheeze Card: denies chest pain, no palpitations GI: no N/V/D, no abdominal pain : no dysuria, no hematuria MSK: no myalgias, no joint pain/stiffness Heme: no easy bruising/bleeding, no blood thinners Skin: no rash, no erythema Vitals: T: R: 20 BP: 145/79 P: Sat: % on RA Wt: 47.99kg PHYSICAL EXAMINATION: General: NAD, alert and oriented to person only. HEENT: EOMI, normal sclera, oropharynx without erythema or exudate Neck: Supple. Full ROM. Heart/Cardiovascular System: RRR, Cap refill < 3 seconds, no rub, no murmur Lungs/Respiratory System: clear to auscultation bilaterally. No increased work of breathing. Room air. Abdomen/Gastro-Intestinal System: no abdominal tenderness, normal bowel sounds Extremities: Warm extremities. No cyanosis or edema. Neuro: No gross deficits appreciated. CN 2-12 grossly intact Psychiatry: Awake, Alert and cooperative with exam Skin: No lesions, rashes, or ulcers Musculoskeletal: Full ROM throughout - Plan Date/Time: 12/16/19 1251 I, Viviane Champagne, have evaluated this patient and agree with findings/plan as outlined by epidemiology intern resident. Pertinent changes/additions are listed here. 89YOF with a PMH significant for #Atypical chest pain: Low suspicion for ACS with HEART score of 4 on presentation given age and risk factors alone. Most likely MSK strain vs. GERD. Per chart review and patients spouses report, patient was recently admitted for similar complaints and refused inpatient stress but reportedly had a negative outpatient stress with cards. Will call [facility] to confirm this & touch base with Dr. Talavera for further recs for management. In the meantime will continue to trend trops. So far negative x2. EKG showed NSR. No active chest pain but will continue PRN nitrostat & Tylenol should she develop recurrent pain. #HTN, uncontrolled: - BP significantly elevated on presentation to the ER but responded well to labetalol x1. - No recently documented home med list. Will also confirm most recent med list with Cardiologists office and if no recent list available will request a list from patients pharmacy. - Will start on ASHLYN PO coreg tonight & continue pending med rec. PRN hydralazine for SBP >180. #HFrEF - Most recent ECHO per chart review from 2015 showed an EF of 35-40% & a hypokinetic apex. - Strict I&Os & daily weights. - Resume home meds once list has been obtained. #CAD - Aware, last cath done in 2015 showed 60% stenosis in 1 vessel. Will start on statin & ASA. Med rec pending. #HLD - FLP from 12/12/19 showed Total cholesterol of 184 & LDL of 110. Continue statin. # Hypothyroidism - TSH of 0.588 this admission. Will resume home synthroid dose once confirmed. Fluids: SL Code status: DNR-DNI DVT PPx: Lovenox Dispo: Will admit for observation on telemetry overnight and continue to trend trops. No further assessment planned for now pending cardiology recs. Addendum - Attending - Attending Attestation Date/Time: 12/17/19 7853 I personally evaluated the patient and discussed the management with Dr. Bruno Portillo on 12/16/2019 I agree with the History, Examination, Assessment and Plan documented above with any addition or exceptions noted below - 89yo F with a PMH of CAD (last cath in 2015), hypothyroidism, HTN who presents for evaluation for R-sided chest pain that has been intermittent over the last month. Pt states pain is very transient lasting only seconds, described as a pressure, located below right ribs. Not exacerbated by eating or exertion. No recent illnesses, n/v, dysuria, fever/chills. Seen recently for this complaint and declined further evaluation in the hospital but did follow-up with Dr. Talavera as outpatient. PMH/PSH/Meds/SH reviewed and agree with resident's documentation. Afebrile VSS. Exam repeated by me and agree with resident's findings. Labs: trop I =0.019. A/P : 1) Chest pain - Place in obs; check serial cardiac enzymes; Stress test result obtained from Dr. Talavera's office was negative.
[2019-12-16] MEDS ORDERED: hydrALAZINE 20 MG/ML VIAL SLOW IVP PRN (13:29)
[2019-12-16] MEDS ORDERED: Calcium Carbonate 500 MG ChewTAB PO PRN (13:29)
[2019-12-16] MEDS ORDERED: Melatonin 3 MG TAB PO PRN (13:29)
[2019-12-16] MEDS ORDERED: Enoxaparin Sodium 30 MG/0.3 ML SYRINGE SC SCH (13:30)
[2019-12-16 14:10] VITALS: BMI 18.7
[2019-12-16 14:27] LABS: Troponin I 0.021 ng/mL (< 0.028)
[2019-12-16] MEDS ORDERED: Nitroglycerin 0.4 MG TAB (25 Tab Bottle) SL PRN (14:44)
[2019-12-16] MEDS ORDERED: Haloperidol Lactate 5 MG/ML VIAL IM PRN (15:55)
[2019-12-16] MEDS ORDERED: Carvedilol 3.125 MG TAB PO SCH (17:00)
[2019-12-16 17:14] LABS: Troponin I Less than 0.010 ng/mL (< 0.028)
[2019-12-16] MEDS: Acetaminophen 325 MG TAB PO PRN (20:35)
[2019-12-16] MEDS ORDERED: Atorvastatin Calcium 40 MG TAB PO SCH (21:00)
[2019-12-17] MEDS: Acetaminophen 325 MG TAB PO PRN ×2 (01:28→09:55)
[2019-12-17] MEDS ORDERED: Levothyroxine Sodium 50 MCG TAB PO SCH (06:00)
--- NOTE | 2019-12-17 08:19 | PDOC.FM ---
- Subjective Subjective: Overnight had episodes of agitation, confusion. Was given melatonin with no improvement, was then given 1 dose haldol with moderate improvement and able to rest come. This morning she states she still has occasion R lower chest vs upper abd pain and also endorses pain to light touch of left lower leg. No rashes. No fever/chills, n/v, SOB. is eager for them to be discharged home and he thinks she will do much better at home that here with her underlying dementia. States he is able to help take care of her. - Objective MAR Reviewed: Yes Vital Signs & Weight: Vital Signs (12 hours) Temp Pulse Resp BP Pulse Ox 12/16/19 23:24 97.6 F 69 17 162/93 H 100 12/16/19 20:31 98.3 F 72 17 162/90 H 98 Weight Weight 47.99 kg I&O: 12/16/19 12/17/19 12/18/19 06:59 06:59 06:59 Intake Total 720 Output Total 2350 Balance -1630 Result Diagrams: 12/16/19 09:51 12/16/19 10:56 EKG Reviewed by me: Yes (Tele: NSR) Phys Exam - Physical Examination Constitutional: NAD (A/O x1-2 not to time, answers acute questions but not remote memory) HEENT: moist MMs Respiratory: no wheezing, no rales, no rhonchi, clear to auscultation bilateral Cardiovascular: RRR, no rub 2/6 MITESH, no chest wall pain Gastrointestinal: soft, non-tender, positive bowel sounds Musculoskeletal: no edema, pulses present Skin: no rash Dx/Plan (1) Chest pain Code(s): R07.9 - CHEST PAIN, UNSPECIFIED Status: Acute (2) HTN (hypertension) Code(s): I10 - ESSENTIAL (PRIMARY) HYPERTENSION Status: Chronic (3) Hypothyroidism Code(s): E03.9 - HYPOTHYROIDISM, UNSPECIFIED Status: Chronic - Plan Plan: 89yo F with h/o CAD, HLD, HTN, Hypothyroidism presents with chest pain. #Chest pain, likely MSK in nature - Ongoing for past month, intermittent, lasting secs R-sided, non exertional - See in ED recently for similar sxs. - Known to Dr. Talavrea, Obtained recent records and reviewed. Stress 12/02 that was negative for ischemia or scar, EF 74% - Trop neg x3, EKG no acute changes - No acute events on tele. - Heart score 3 - Low suspicion for ACS, likely MSK in nature, pain worse with movements. #HLD - records reviewed and elevated on past - discuss risks vs benefits as pt 89, underlying dementia, and possibly SE of myalgias #CAD - See above, will cont home plavix, and nitro prn #Hypothyroidism - Will cont home thyroxine, TSH 0.5887 #HTN - Appears uncontrolled and elevated in ED - Will cont home toprol and monitor to adjust as needed. Would prefer slightly elevated as hypotensive fall risk is high. #Suspected Dementia and deconditing - Speech for cognitive eval - desires placement home, for arranging home health - PT/OT Code: DNR IVF: SL DVT: Lovenox Diet: HH PCP: No current PCP - encouraged obtaining Dispo: Admitted to tele obs for cp r/o. Likely MSK in nature, recent cardiac workup negative. Anticipate discharge today. Addendum - Attending - Attending Attestation Date/Time: 12/17/19 1042 I personally evaluated the patient and discussed the management with Dr. Portillo. I agree with the History, Examination, Assessment and Plan documented above with any addition or exceptions noted below. Patient here for chest pain, negative troponins, and normal recent stress test. This is non cardiac in nature. Will give trial of topical NSAID to see if relief. She has dementia and has had some delirium but is appropriate in conversation this morning. is interested in taking patient home, feels he can care for her. Possible d/c later today pending clinical course.
[2019-12-17] MEDS ORDERED: Clopidogrel Bisulfate 75 MG TAB PO SCH (09:00)
[2019-12-17] MEDS ORDERED: Hydrochlorothiazide 25 MG TAB PO SCH (09:00)
[2019-12-17] MEDS ORDERED: Aspirin 81 mg Enteric Coated Tablet PO SCH (09:00)
[2019-12-17] MEDS ORDERED: Enoxaparin Sodium 30 MG/0.3 ML SYRINGE SC SCH (09:00)
[2019-12-17] MEDS ORDERED: Diclofenac 1% 100 GM GEL TP PRN (10:50)
[2019-12-17 12:33] VITALS: BP 124/69; TEMP 97.8
--- NOTE | 2019-12-17 17:58 | DIS ---
DATE OF ADMISSION: 12/16/2019 DATE OF DISCHARGE: 12/17/2019 RESIDENT: Raffy Portillo MD ADMITTING ATTENDING: Gladys Harris MD DISCHARGE ATTENDING: Felipe Quevedo MD. CONSULTS: None. PROCEDURES: Chest x-ray on 12/16/2019, demonstrating no acute cardiopulmonary abnormality. PRIMARY DIAGNOSIS: Chest pain, likely musculoskeletal in nature. SECONDARY DIAGNOSES: 1. Hyperlipidemia. 2. Coronary artery disease. 3. Hypothyroidism. 4. Hypertension. 5. Suspected dementia and chronic deconditioning. DISCHARGE MEDICATIONS: 1. Nitroglycerin 0.4 mg p.o. q.5 minutes p.r.n. 2. Megace 400 mg p.o. b.i.d. 3. Aspirin 81 mg p.o. daily. 4. Voltaren gel 2 g topical q.i.d. p.r.n. 5. Levothyroxine 50 mcg p.o. daily. 6. Toprol-XL 25 mg p.o. daily. DISCONTINUED MEDICATIONS: 1. Premarin 0.45 mg two tablets daily. 2. Atorvastatin 40 mg p.o. at bedtime. 3. Plavix 75 mg p.o. q.a.m. HISTORY OF PRESENT ILLNESS/HOSPITAL COURSE: The patient is an 89-year-old female with past medical history of coronary artery disease, hypothyroidism, hypertension, and suspected underlying dementia, who presented for evaluation of right-sided lower chest/upper abdominal pain. She stated the pain has been intermittent over the past month as very transient, lasting only seconds, described as a pressure, located right below her right costal margin. It is not exacerbated by eating or exertion, but does appear to come on with certain twisting movements. She has had no recent illnesses, nausea, vomiting, dysuria, fevers, or chills. She was referred to see Dr. Talavera after presenting to the ER approximately a month ago for this chest pain and had a stress test on 12/02, that was within normal limits. notes that she has had decreased memory over "sometime," however they have not seen a PCP in quite a while. In the ED, she was pain free. In the ED, she was given aspirin and labetalol for elevated blood pressure. Troponin was obtained and negative and EKG did not show any acute abnormalities. However, she was still admitted for acute ACS rule out. On the floor, her initial blood pressure was elevated at 180s/90s, responded to labetalol and she was restarted on her home metoprolol with blood pressures in the 140s/90s. She was monitored on telemetry without any acute events. Troponins were trended and negative. Records were obtained from Dr. Talavera's office that confirmed a stress test on 12/02, that was negative for ischemia or scarring and EF 64%. She had a HEART score of 3 and had a very low suspicion for ACS. Overnight, she did have a few episodes of delirium, agitation, that required medications. She did have a few acute episodes of this pain lasting a few seconds, not relieved by Tylenol. It was discussed with that to treat this pain is likely could benefit from topical applications, thus she was encouraged to use heating pad, Tylenol, and diclofenac gel as needed. They were also strongly encouraged to follow up with the primary care provider for further assessment of this. I have discussed with that they would likely benefit from home health or even placement into a prison or nursing facility. However, due to not having a PCP, these services could not be arranged by spring encaser in the hospital upon discharge, thus they were strongly encouraged to follow with the PCP. Information for [facility] as well as [facility] was provided to the patient's . Regarding her hyperlipidemia, it was determined that she did have high cholesterol on previous lab draws. However, due to the patient's age and mental status, prognosis and risk of side effects of myalgias with statin, it was determined that this could be discontinued. For the patient's coronary artery disease, she was continued on aspirin, however, it was discontinued that Plavix would likely be discontinued. She was continued on her home Synthroid and blood pressure medication of Toprol. At the time of discharge, the patient was stable and at her baseline and discharge plan was discussed with patient and at bedside who voiced agreement understanding of the discharge plan and to follow up with a PCP. All questions were answered appropriately. The patient was pain free at last examination. DISPOSITION: Stable. DISCHARGE INSTRUCTIONS: 1. Location: Home. 2. Diet: Regular as tolerated. 3. Activity: As tolerated. 4. Followup: The patient is to follow up with a primary care provider within one week of discharge and Dr. Talavera as previously directed. Job ID: [id number] [facility]
== END 2019-12-17 13:10 | disposition home or self-care (01) ==
LOC: ERS 09:41 → 2SW 13:22 → 2NO 15:53
PROVIDERS: ADMIT Student in an Organized Health Care Education/Training Program; ATTEND Emergency Medicine
DX: R07.89 Other chest pain (principal); I25.10 Atherosclerotic heart disease of native coronary artery without angina pectoris; E03.9 Hypothyroidism, unspecified; E78.5 Hyperlipidemia, unspecified; I11.0 Hypertensive heart disease with heart failure; I50.20 Unspecified systolic (congestive) heart failure; I25.2 Old myocardial infarction; R53.81 Other malaise; Z66 Do not resuscitate; Z79.899 Other long term (current) drug therapy
CPT/HCPCS: 71045; 81003; 82550; 83690; 84484 ×2; 93005; 96372 ×2; 96374; 97139 ×4; 97535; 99285; G0378 ×3; 36415; 80053; 84443; 85025; J1630; J1650

== ENCOUNTER 2019-12-21 15:33 | Emergency (ER) | payer MEDICARE, OTHER ==
--- NOTE | 2019-12-21 18:11 | RAD ---
SINGLE VIEW PELVIS: HISTORY: Fall out of bed with left hip pain. COMPARISON: None. FINDINGS: A single view of the pelvis shows no evidence of acute fracture or dislocation. Mild degenerative suzy nges are seen in both hips. Degenerative changes are seen in the lumbar spine. IMPRESSION: No evidence of acute osseous abnormality. POS: [facility]
--- NOTE | 2019-12-21 18:11 | RAD ---
LEFT HIP TWO VIEWS: HISTORY: Fall out of bed with left hip pain. COMPARISON: None. FINDINGS: Two views of the left hip show no evidence of acute fracture or dislocation. Moderate degenerative ch glenn is seen in the left hip. No soft tissue swelling is seen. IMPRESSION: Degenerative changes in the left hip without acute osseous abnormality. POS: [facility]
--- NOTE | 2019-12-21 18:36 | CT ---
CT BRAIN WITHOUT CONTRAST: HISTORY: Fall from bed with head trauma. COMPARISON: 11/28/2019 TECHNIQUE: Multiple contiguous axial images were obtained in a CT of the brain without contrast. FINDINGS: There is a stable, slightly abnormal appearance of the basal ganglia. There is no evidence of hydroce phalus, intracranial hemorrhage or extraaxial fluid collection. Scattered hypodensities are likely se condary to small vessel ischemic disease. The calvarium and overlying soft tissues are unremarkable. The visualized paranasal sinuses and masto id air cells are well aerated. IMPRESSION: No evidence of acute intracranial abnormality. POS: [facility]
[2019-12-21 19:55] LABS: Bilirubin Negative (Negative); Blood, Urine Negative (Negative); Clarity Turbid (Clear); Glucose, Urine (Dipstick) Normal (Negative); Leukocyte 500 Leu/uL (Negative); Mucous/LPF Rare LPF (<2+); Nitrite 2+ (Negative); Protein, Urine (Dipstick) 30 mg/dL (Neg-Trace); Squamous Epithelial 0-3 HPF (0-3); WBC/HPF Greater than 50 HPF (0-3)
[2019-12-21 20:05] LABS: RBC/HPF 0-3 HPF (0-3)
[2019-12-21 20:06] LABS: Bacteria/HPF 3+ HPF (None Seen); Calcium Oxalate Crystals 2+ HPF (None Seen)
== END 2019-12-21 19:44 | disposition home or self-care (01) ==
LOC: ERS 15:33
DX: S70.02XA Contusion of left hip, initial encounter (principal); K59.00 Constipation, unspecified; E03.9 Hypothyroidism, unspecified; I25.2 Old myocardial infarction; I10 Essential (primary) hypertension; E78.5 Hyperlipidemia, unspecified; W06.XXXA Fall from bed, initial encounter
CPT/HCPCS: 70450; 72170; 81003; 81015

== ENCOUNTER 2019-12-23 19:56 | Emergency (ER) | payer MEDICARE, OTHER ==
[2019-12-23 22:29] LABS: #Lymphocytes 0.7 thou/uL (1.20-3.40); #Monocytes 0.5 thou/uL (0.11-0.59); #Neutrophils 8.1 thou/uL (1.40-6.50); %Eosinophils 0.2 % (0.0-10.0); %Lymphocytes 7.4 % (21.0-51.0); %Monocytes 4.8 % (0.0-10.0); %Neutrophils 87.5 % (42.0-75.0); Hemoglobin 14.3 g/dL (12.0-16.0); Mean Corpuscular HGB CONC 32.8 g/dL (32.0-36.0); Mean Corpuscular Hemoglobin 32.1 pg (27.0-31.0); Mean Platelet Volume 7.1 fL (7.4-10.4); Platelet Count 277 thou/uL (130-400); RBC Distribution Width 11.9 % (11.5-14.5); Red Blood Cell (RBC) Count 4.45 mill/uL (4.20-5.40); White Blood Cell (WBC) Count 9.3 thou/uL (4.8-10.8)
[2019-12-23 22:55] LABS: ALT (SGPT) 25 U/L (8-55); AST (SGOT) 21 U/L (5-34); Albumin 4.3 g/dL (3.4-4.8); Alkaline Phosphatase 82 U/L (40-110); Anion Gap 13 mmol/L (10-20); BUN (Urea Nitrogen) 27 mg/dL (9.8-20.1); Bilirubin, Total 0.6 mg/dL (0.2-1.2); Calc. Creatinine Clearance 0 mL/min (70-130); Calcium 9.9 mg/dL (7.8-10.44); Carbon Dioxide 25 mmol/L (23-31); Chloride 105 mmol/L (98-107); Estimated GFR-MDRD 66; Globulin 3.1 g/dL (2.4-3.5); Glucose 102 mg/dL (83-110); Protein, Total 7.4 g/dL (6.0-8.3); Sodium 139 mmol/L (136-145)
[2019-12-23] MEDS ORDERED: Midazolam HCl 2 mg/2 ml Vial ONE (23:04)
--- NOTE | 2019-12-23 23:15 | RAD ---
XR Abdomen 1 View/KUB HISTORY: Abdominal pain. Constipation. COMPARISON: None. FINDINGS: The bowel gas pattern appears nonobstructive. No renal calculi are seen. Mild arthritic suzy nges spine and hips are noted. IMPRESSION: No acute findings.
[2019-12-23 23:20] LABS: Bacteria/HPF None Seen HPF (None Seen); Bilirubin Negative (Negative); Blood, Urine Negative (Negative); Clarity Clear (Clear); Glucose, Urine (Dipstick) Normal (Negative); Leukocyte 250 Leu/uL (Negative); Nitrite Negative (Negative); Protein, Urine (Dipstick) Negative (Neg-Trace); RBC/HPF 0-3 HPF (0-3); Squamous Epithelial 0-3 HPF (0-3); Urobilinogen Normal mg/dL (Less than 2)
[2019-12-23] MEDS ORDERED: Lidocaine Viscous Sol 2% 15 ml UD Cup ONE (23:30)
[2019-12-24] MEDS ORDERED: Fleet Enema 133 ML BOT PR SCH (00:45)
== END 2019-12-24 01:23 | disposition home or self-care (01) ==
LOC: ERS 19:56
DX: K59.00 Constipation, unspecified (principal); E03.9 Hypothyroidism, unspecified; I25.2 Old myocardial infarction; I10 Essential (primary) hypertension; E78.5 Hyperlipidemia, unspecified; Z79.899 Other long term (current) drug therapy
CPT/HCPCS: 36415; 74018; 80053; 81003; 81015; 85025; 93005; 96374; J2250

== ENCOUNTER 2020-01-16 17:28 | Emergency (ER) | payer MEDICARE, OTHER ==
--- NOTE | 2020-01-16 18:39 | CT ---
CT head noncontrast HISTORY: Fall. Head injury. COMPARISON: 12/21/2019. FINDINGS: There is no evidence of acute intracranial hemorrhage or infarct. 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 Appearance of a congenital variant. Visualized paranasal sinuses remain well-aerated. IMPRESSION: Chronic-type findings are stable. No acute intracranial abnormalities are demonstrated.
--- NOTE | 2020-01-16 18:48 | CT ---
CT cervical spine noncontrast HISTORY: Neck injury. FINDINGS: Vertebral body heights are maintained. Mild straightening of the normal lordotic curvature. Multilevel disc space narrowing and osteophytosis. Cervicothoracic junction is intact. No acute fracture or dislocation are apparent. There is prominent calcified lesion at the carotid bifurcations . 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 No acute osseous abnormalities are de monstrated.
== END 2020-01-16 19:36 | disposition home or self-care (01) ==
LOC: ERS 17:28
DX: S09.90XA Unspecified injury of head, initial encounter (principal); E03.9 Hypothyroidism, unspecified; I10 Essential (primary) hypertension; E78.5 Hyperlipidemia, unspecified; I25.2 Old myocardial infarction; Z79.899 Other long term (current) drug therapy; W19.XXXA Unspecified fall, initial encounter
CPT/HCPCS: 70450; 72125